=== PATIENT | male | born 1960 | race Caucasian/White ===

== ENCOUNTER 2017-02-04 12:00 | Emergency (ER) | payer SELFPAY ==
[~2017-02-04] VITALS: Ht 182.9 cm; Wt 114.3 kg
[~2017-02-04 12:00] MED LIST: TRAM50TA PO
[2017-02-04 12:05] VITALS: BP 184/82
[2017-02-04] MEDS ORDERED: TRAM-48 PO (12:33)
[2017-02-04] MEDS ORDERED: CIPR500T94 PO (12:33)
--- NOTE | 2017-02-04 12:33 | PHYS DOC ---
Past Medical History Past Medical History: Hypertension Past Surgical History: Other Additional Past Surgical Histo: RIGHT WRIST Alcohol Use: None Drug Use: None Adult General Chief Complaint Chief Complaint: DENTAL PROBLEM HPI HPI Patient is a 56 year old male with history of hypertension who presents today complaining of moderate right upper and lower jaw dental pain and swelling that began 4 days ago. Patient states he has multiple bad teeth that need to be extracted but does not have a dentist or dental insurance. Patient spent an incredible amount of time telling me is allergic to penicillin but takes cephalexin. He also states he was given clindamycin and has a whole bottle at home which he will not take because it upsets his stomach despite taking with food. He is currently requesting Cipro. Patient denies any fever or trismus. Review of Systems Review of Systems Constitutional: Denies fever or chills [] Eyes: Denies change in visual acuity, redness, or eye pain [] HENT: Denies nasal congestion or sore throat [] Right upper and lower dental pain and swelling Musculoskeletal: Denies back pain or joint pain [] Integument: Denies rash or skin lesions [] Neurologic: Denies headache, focal weakness or sensory changes [] All other systems were reviewed and found to be within normal limits, except as documented in this note. Allergies Allergies Allergies Coded Allergies Type Severity Reaction Last Updated Verified Penicillins Allergy Intermediate PASSES OUT 02/04/17 Yes Physical Exam Physical Exam Constitutional: Well developed, well nourished, no acute distress, non-toxic appearance. [] HENT: Normocephalic, atraumatic, bilateral external ears normal, oropharynx moist, no oral exudates, nose normal. [] Patient is severely decayed teeth and multiple missing teeth. Most of his teeth are decayed to the point of root exposure. There is swelling noted on the right lower exterior gum consistent with dental abscess. There is diffuse erythema noted on the right lower gums. Skin: Warm, dry, no erythema, no rash. [] Back: No tenderness, no CVA tenderness. [] Extremities: No tenderness, no cyanosis, no clubbing, ROM intact, no edema. [] Neurologic: Alert and oriented X 3, normal motor function, normal sensory function, no focal deficits noted. [] Psychologic: Affect normal, judgement normal, mood normal. [] Current Patient Data Vital Signs Vital Signs Date Time Temp Pulse Resp B/P (MAP) Pulse Ox O2 Delivery O2 Flow Rate FiO2 02/04/17 12:05 98.1 98 16 99 Room Air 98.1 EKG EKG [] Radiology/Procedures Radiology/Procedures [] Course & Med Decision Making Course & Med Decision Making Pertinent Labs and Imaging studies reviewed. (See chart for details) Patient is in the ED with dental abscess. He was discharged with Cipro. Discharged with Ultram 10 tablets for pain. Follow-up with dentist from a list provided in 1-2 weeks. Dragon Disclaimer Dragon Disclaimer This electronic medical record was generated, in whole or in part, using a voice recognition dictation system. Departure Departure Impression: Primary Impression: Dentalgia Additional Impressions: Infected dental caries Abscess, dental Disposition: HOME, SELF-CARE Condition: STABLE Referrals: NO PCP (PCP) follow up with a dentist from the list provided in 1 week Patient Instructions: Dental Abscess, Dental Caries Additional Instructions: You were seen with dental abscess. We provided you a dental list. Follow-up in the next 1-2 weeks. Complete your antibiotics. Scripts Tramadol Hcl (ULTRAM) 50 Mg Tablet 1 TAB PO Q6HRS, #10 TAB Prov: EDUARDA NGUYEN APRN 02/04/17 Ciprofloxacin Hcl (CIPRO) 500 Mg Tablet 1 TAB PO BID, #20 TAB Prov: EDUARDA NGUYEN APRN 02/04/17 Problem Qualifiers EDUARDA NGUYEN APRN Feb 04, 2017 12:33
== END 2017-02-04 12:42 | disposition home or self-care (01) ==
LOC: ER 12:00
DX: K04.7 Periapical abscess without sinus (principal); K02.9 Dental caries, unspecified; I10 Essential (primary) hypertension; Z88.0 Allergy status to penicillin
CPT/HCPCS: 99283

== ENCOUNTER 2020-11-29 10:52 | Emergency (ER) | payer SELFPAY ==
[~2020-11-29] VITALS: Ht 182.9 cm; Wt 116.0 kg
[~2020-11-29 10:52] MED LIST changes: +ACET325T9 PO; +ALBU2.5V8 NEB; +ASCO500T4 PO; +BENA1TAB44 PO; +CEPH250C PO; +CIPR500T94 PO; +DOCU-148 PO; +FAMO20TA5 PO; +FURO-68 PO; +GUAI100L12 PO; +HYDR-2145 PO; +LACT1CAP19 PO; +LOSA-73 PO; +TRAM-48 PO
--- NOTE | 2020-11-29 11:33 | RAD ---
EXAM: Head and maxillofacial bone CT without contrast. HISTORY: Fall. TECHNIQUE: Computed tomographic images of the head and maxillofacial bones were obtained without cont rast. *One or more of the following individualized dose reduction techniques were utilized for this examina tion: 1. Automated exposure control. 2. Adjustment of the mA and/or kV according to patient size. 3. Use of iterative reconstruction technique. COMPARISON: 10/19/2019. FINDINGS: There is no acute or subacute extra-axial or intraparenchymal hemorrhage. There is no mass effect or midline shift. There is no hydrocephalus. There is decreased attenuation scattered throughout the cerebral white matter, a nonspecific finding which can be seen with chronic small vessel disease. This is advanced for patient age. The mastoid ai r cells are clear. No calvarial fracture is seen. There is right periorbital and anterior maxillary soft tissue stranding due to soft tissue contusion. No acute fracture is seen. There is a right maxillary sinus mucosal thickening with small mucous ret ention cysts. There is no significant nasal septal deviation. The globes, extraocular muscles and opt ic nerves are unremarkable. The temporomandibular joints are intact. There are multiple dental restorations and missing and partially missing teeth. There are multiple de ntal caries. There are multiple periapical lucencies predominantly involving the right maxillary mola rs. There is degenerative change involving the cervical spine, primarily at C5-C6 and C6-C7. There is no suspicious osseous lesion or acute osseous finding. IMPRESSION: 1. Right periorbital and anterior maxillary soft tissue stranding due to a contusion. No underlying m axillofacial bone fracture is seen. 2. Right maxillary sinus disease. 3. Dental disease, including multiple dental caries and periapical lucencies. Correlate with dental e xam findings. 4. Scattered areas of hypodensity within the cerebral white matter, a nonspecific finding which is mo st commonly due to chronic small vessel disease. This is advanced for patient age. The possibility of changes due to chronic demyelination can be considered in the appropriate clinical setting. Electronically signed by: Kyra Buitrago MD (11/29/2020 11:31 AM) [id number]
[2020-11-29] MEDS ORDERED: FUROSEMIDE 40 MG TABLET. PO ONE (11:45)
[2020-11-29] MEDS ORDERED: cloNIDine HCL 0.1 MG TABLET PO ONE (11:45)
[2020-11-29] MEDS ORDERED: DOXY100T PO (11:51)
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
[2020-11-29] MEDS ORDERED: HYDR-2761 PO (11:58)
[2020-11-29] MEDS ORDERED: HALOPERIDOL LACTATE 5 MG/ML VIAL. IM ONE (12:00)
[2020-11-29 12:20] VITALS: BP 170/91
== END 2020-11-29 12:18 | disposition home or self-care (01) ==
LOC: ER 10:52
DX: S05.11XA Contusion of eyeball and orbital tissues, right eye, initial encounter (principal); I10 Essential (primary) hypertension; J01.00 Acute maxillary sinusitis, unspecified; I11.0 Hypertensive heart disease with heart failure; I50.9 Heart failure, unspecified; Z88.0 Allergy status to penicillin; V19.9XXA Pedal cyclist (driver) (passenger) injured in unspecified traffic accident, initial encounter; Y93.89 Activity, other specified; Y92.89 Other specified places as the place of occurrence of the external cause; Y99.8 Other external cause status
CPT/HCPCS: 70450; 70486; 99285-25

== ENCOUNTER 2021-01-28 12:51 | Inpatient (IN) | payer SELFPAY ==
[~2021-01-28] VITALS: Ht 182.9 cm; Wt 124.5 kg
[~2021-01-28 12:51] MED LIST changes: +DOXY100T PO; +HYDR-2761 PO
--- NOTE | 2021-01-28 14:58 | PHYS DOC ---
Past Medical History Past Medical History: CHF, Hypertension Additional Past Medical Histor: COVID-19 Past Surgical History: Other Additional Past Surgical Histo: RIGHT WRIST, R KNEE Smoking Status: Never Smoker Alcohol Use: None Drug Use: None General Adult EDM: Chief Complaint: SHORTNESS OF BREATH HPI: HPI: Patient is a 60-year-old male who presents to the emergency department for a 2- day history of shortness of breath. Patient has a history of congestive heart failure and hypertension. He states that he has been out of his Lasix for 1 month because he did not have a refill. He follows up with [facility]. He states that he takes 20 mg of Lasix and 25 mg of hydrochlorothiazide. Patient denies any cough, fever, nausea, vomiting, abdominal pain, dizziness, chest pain, increased edema in his abdomen or lower extremities. Patient states that his mother is sick with a viral illness currently. Review of Systems: Review of Systems: Constitutional: See HPI Respiratory: See HPI Cardiovascular: See HPI GI: See HPI Musculoskeletal: See HPI Integument: See HPI Neurologic: See HPI Heart Score: C/O Chest Pain: No Risk Factors: Risk Factors: DM, Current or recent (<one month) smoker, HTN, HLP, family history of CAD, obesity. Risk Scores: Score 0 - 3: 2.5% MACE over next 6 weeks - Discharge Home Score 4 - 6: 20.3% MACE over next 6 weeks - Admit for Clinical Observation Score 7 - 10: 72.7% MACE over next 6 weeks - Early Invasive Strategies Allergies: Allergies: Allergies Coded Allergies Type Severity Reaction Last Updated Verified Penicillins Allergy Intermediate PASSES OUT 02/04/17 Yes Physical Exam: PE: Constitutional: Well developed, well nourished, no acute distress, non-toxic appearance. [] HENT: Normocephalic, atraumatic, bilateral external ears normal, oropharynx moist, no oral exudates, nose normal. [] Eyes: PERRL, EOMI, conjunctiva normal, no discharge. [] Neck: Normal range of motion, no tenderness, supple, no stridor. [] Cardiovascular:Heart rate regular rhythm, no murmur [] Lungs & Thorax: Bilateral breath sounds clear to auscultation [] Abdomen: Bowel sounds normal, soft, no tenderness, obese, no masses, no pulsatile masses. [] Skin: Warm, dry, no erythema, no rash. [] Back: Normal range of motion Extremities: No tenderness, no cyanosis, no clubbing, ROM intact, 2+ pitting edema noted to bilateral lower extremities Neurologic: Alert and oriented X 3, normal motor function, normal sensory function, no focal deficits noted. [] Psychologic: Affect normal, judgement normal, mood normal. [] Current Patient Data: Labs: Laboratory Tests Test 01/28/21 14:46 01/28/21 14:55 White Blood Count 8.3 x10^3/uL Red Blood Count 6.01 x10^6/uL Hemoglobin 13.5 g/dL Hematocrit 43.2 % Mean Corpuscular Volume 72 fL Mean Corpuscular Hemoglobin 22 pg Mean Corpuscular Hemoglobin Concent 31 g/dL Red Cell Distribution Width 16.0 % Platelet Count 286 x10^3/uL Neutrophils (%) (Auto) 55 % Lymphocytes (%) (Auto) 32 % Monocytes (%) (Auto) 11 % Eosinophils (%) (Auto) 2 % Basophils (%) (Auto) 1 % Neutrophils # (Auto) 4.5 x10^3/uL Lymphocytes # (Auto) 2.6 x10^3/uL Monocytes # (Auto) 0.9 x10^3/uL Eosinophils # (Auto) 0.2 x10^3/uL Basophils # (Auto) 0.1 x10^3/uL Platelet Estimate Adequate Hypochromasia Mod Poikilocytosis Slight Anisocytosis Slight Microcytosis Slight Ovalocytes Few Sodium Level 141 mmol/L Potassium Level 4.7 mmol/L Chloride Level 106 mmol/L Carbon Dioxide Level 26 mmol/L Anion Gap 9 Blood Urea Nitrogen 22 mg/dL Creatinine 1.0 mg/dL Estimated GFR (Cockcroft-Gault) 76.5 BUN/Creatinine Ratio 22 Glucose Level 101 mg/dL Calcium Level 8.9 mg/dL Total Bilirubin 0.7 mg/dL Aspartate Amino Transf (AST/SGOT) 19 U/L Alanine Aminotransferase (ALT/SGPT) 14 U/L Alkaline Phosphatase 50 U/L Troponin I High Sensitivity 1623 ng/L NJ-Aty-E-Type Natriuretic Peptide 4427 pg/mL Total Protein 6.9 g/dL Albumin 3.0 g/dL Albumin/Globulin Ratio 0.8 Influenza Type A Antigen Negative Influenza Type B Antigen Negative SARS-CoV-2 Antigen (Rapid) Negative Current Medications Medications (Trade) Dose Ordered Sig/Мария Route PRN Reason Start Time Stop Time Status Last Admin Dose Admin Furosemide (Lasix) 20 mg 1X ONCE IVP 01/28/21 17:00 01/28/21 17:01 DC Heparin Sodium (Porcine) (Heparin Sodium) 4,000 unit 1X ONCE IV 01/28/21 17:00 01/28/21 17:01 DC Heparin Sodium/ Dextrose 250 ml @ 1,000 mls/hr CONT PRN IV PER PROTOCOL 01/28/21 17:00 Heparin Sodium (Porcine) (Heparin Sodium) 3,250 unit PRN Q6HRS PRN IV FOR UFH LEVEL LESS THAN 0.2 01/28/21 17:00 Vital Signs: Vital Signs Date Time Temp Pulse Resp B/P (MAP) Pulse Ox O2 Delivery O2 Flow Rate FiO2 01/28/21 14:19 101 22 140/97 (111) 99 Room Air 01/28/21 12:54 98.5 98.5 EKG: EKG: [] EKG performed by ER staff at 1441 shows sinus rhythm with a rate of 95, with PACs and a bundle branch block, QTC of 476, no STEMI read by Dr. Deng at 1441 Radiology/Procedures: Radiology/Procedures: []PROCEDURE: PORTABLE CHEST 1V EXAMINATION: XR CHEST 1V CLINICAL HISTORY: Shortness of breath EXAM DATE/TIME: 01/28/2021 3:11 PM COMPARISON: 11/16/2019 FINDINGS: Lines, Tubes, and Devices: None. Cardiomediastinal Silhouette: Cardiomegaly, similar to prior study. Aortic atherosclerotic calcification. Lungs and Pleura: Mild patchy bibasilar opacities. Questionable hazy opacities in the mid to lower lung zones versus extrathoracic soft tissue attenuation related to body habitus. No definite pleural effusion. Relatively stable appearance of the pulmonary vasculature. Bones and Soft Tissues: No acute osseous abnormality. IMPRESSION: Mild bibasilar patchy airspace disease, possibly subsegmental atelectasis. Cardiomegaly, similar to prior study. Electronically signed by: Steven Bar DO (01/28/2021 4:27 PM) [facility] DICTATED and SIGNED BY: STEVEN BAR DO DATE: 01/28/21 [id number] 0 Course & Med Decision Making: Course & Med Decision Making Pertinent Labs and Imaging studies reviewed. (See chart for details) [] Patient presents to the emergency department for 2-day history of shortness of breath with a history of congestive heart failure. Patient has been out of his Lasix and hydrochlorothiazide for 1 month. Patient reports that he did get a refill of the medication. Patient reports that his mother is also sick with a viral illness. Patient denies any increased edema to his abdomen or bilateral lower extremities. Patient's vital signs are stable. Work-up in the ER con sisted of blood work, EKG, chest x-ray. CBC is unremarkable. Patient's BNP was 4427, troponin I623. Patient's pH MRG was a 2.6% 7-day mortality. Chest x-ray shows cardiomegaly and atelectasis but no infiltrate. Due to his elevated troponin, patient will be admitted for serial troponins/EKGs and cardiac consultation. Patient will be treated with his home Lasix dose. I discussed these findings with Dr. Leonardo who is the sql data architect on-call today, he advised initiating the heparin protocol and n.p.o. after midnight. Heparin protocol ordered for patient. I discussed patient's case with Dr. Flowers who agreed to admit the patient under his services for CHF exacerbation and NSTEMI. ER bridge orders placed. 1704. Ariane Disclaimer: Ariane Disclaimer: This electronic medical record was generated, in whole or in part, using a voice recognition dictation system. Departure Departure Impression: Primary Impression: CHF exacerbation Qualified Codes: I50.9 - Heart failure, unspecified Additional Impression: NSTEMI (non-ST elevated myocardial infarction) Disposition: ADMITTED INPATIENT Admitting Physician: LUIS EDUARDO Condition: STABLE Referrals: JOSH CHEN APRN (PCP) ENEDINA KENNEDY APRN Jan 28, 2021 14:58
[2021-01-28 15:00] LABS: BASO # 0.1 x10^3/uL (0.0-0.2); BASO % 1 % (0-3); EOS # 0.2 x10^3/uL (0.0-0.7); EOS % 2 % (0-3); HEMATOCRIT 43.2 % (39.0-53.0); HEMOGLOBIN 13.5 g/dL (13.0-17.5); LYMPH # 2.6 x10^3/uL (1.0-4.8); LYMPH % 32 % (24-48); MEAN CORPUSCULAR HEMOGLOBIN 22 pg (25-35); MEAN CORPUSCULAR HGB CONC 31 g/dL (31-37); MEAN CORPUSCULAR VOLUME 72 fL (79-100); MONO # 0.9 x10^3/uL (0.0-1.1); MONO % 11 % (0-9); NEUT # 4.5 x10^3/uL (1.8-7.7); NEUT % 55 % (31-73); PLATELET COUNT 286 x10^3/uL (140-400); RED BLOOD COUNT 6.01 x10^6/uL (4.30-5.70); WHITE BLOOD COUNT 8.3 x10^3/uL (4.0-11.0)
[2021-01-28 15:56] LABS: CALCIUM 8.9 mg/dL (8.5-10.1); GFR 76.5; POTASSIUM 4.7 mmol/L (3.5-5.1)
[2021-01-28 16:06] LABS: ALBUMIN/GLOBULIN RATIO 0.8 (1.0-1.7); TOTAL BILIRUBIN 0.7 mg/dL (0.2-1.0); TOTAL PROTEIN 6.9 g/dL (6.4-8.2)
[2021-01-28 16:13] LABS: PLT ESTIMATE ADEQUATE (ADEQUATE)
[2021-01-28 16:14] LABS: ANISOCYTOSIS SLIGHT; HYPOCHROMIA MOD; MICROCYTOSIS SLIGHT; OVALOCYTES FEW; POIKILOCYTOSIS SLIGHT
[2021-01-28 16:22] LABS: INFLUENZA A PATIENT NEGATIVE (NEGATIVE); INFLUENZA B PATIENT NEGATIVE (NEGATIVE)
--- NOTE | 2021-01-28 16:29 | RAD ---
EXAMINATION: XR CHEST 1V CLINICAL HISTORY: Shortness of breath EXAM DATE/TIME: 01/28/2021 3:11 PM COMPARISON: 11/16/2019 FINDINGS: Lines, Tubes, and Devices: None. Cardiomediastinal Silhouette: Cardiomegaly, similar to prior study. Aortic atherosclerotic calcificat ion. Lungs and Pleura: Mild patchy bibasilar opacities. Questionable hazy opacities in the mid to lower nelli ng zones versus extrathoracic soft tissue attenuation related to body habitus. No definite pleural ef fusion. Relatively stable appearance of the pulmonary vasculature. Bones and Soft Tissues: No acute osseous abnormality. IMPRESSION: Mild bibasilar patchy airspace disease, possibly subsegmental atelectasis. Cardiomegaly, similar to prior study. Electronically signed by: Steven Garcia DO (01/28/2021 4:27 PM) GWEN
[2021-01-28] MEDS ORDERED: FUROSEMIDE 20 MG/2 ML VIAL. IVP ONE (17:00)
[2021-01-28] MEDS ORDERED: HEPARIN for IV BOLUS 10,000 UNIT/10 ML VIAL. IV ONE (17:00)
[2021-01-28] MEDS ORDERED: HEPARIN for IV BOLUS 10,000 UNIT/10 ML VIAL. IV PRN (17:00)
[2021-01-28] MEDS: HEPARIN 25,000UTS/250ML PREMIX 250 ML IV PRN (17:41)
[2021-01-28 18:55] VITALS: BP 162/80
--- NOTE | 2021-01-28 18:58 | EKG ---
[facility] [address] [place] [address] Test Date: 2021-01-28 Test Time: 14:41:08 Pat Name: LAKEISHA MEYERS Department: Room: [facility] Gender: M Supervisor [employer]: : 1960 Requested By: ENEDINA KENNEDY Order Number: [id number] Reading MD: Prince Leonardo Measurements Intervals [place] Rate: 95 P: 48 [place]: 162 QRS: -36 QRSD: 148 T: 42 QT: 376 QTc: 476 Interpretive Statements SINUS RHYTHM ATRIAL PREMATURE COMPLEX(ES) LEFT ATRIAL ABNORMALITY ABNORMAL LEFT AXIS DEVIATION LEFT ANTERIOR FASCICULAR BLOCK RIGHT BUNDLE BRANCH BLOCK BIFASCICULAR BLOCK Electronically Signed On 01-29-2021 12:34:53 CERTIFIED DRUG COUNSELOR by Prince Leonardo
[2021-01-28] MEDS ORDERED: HYDR-2145 PO (19:36)
--- NOTE | 2021-01-28 19:38 | NUR ---
Admit from ER prior to shift change. A/O x 4. Reports CP and SOA prompted him to come to ER. Denies CP or SOA at this time. Heparin drip infusing as ordered. Reports Lasix and HCTZ as only home medications and [facility] is his choice of pharmacy. Request box lunch. Orientated to room and call light. Reviewed POC to include Tele, Heparin drip and lab draws. Verbalized understanding. Resting in bed. Call light at hand.
--- NOTE | 2021-01-28 19:39 | HP ---
DATE OF SERVICE: 01/28/2021 ADMIT DATE: 01/28/2021 CHIEF COMPLAINT: Shortness of breath. HISTORY OF PRESENT ILLNESS: The patient is a pleasant 60-year-old male who quit taking his Lasix a month ago. He did not have a refill. Now, he is in heart failure. He has got acute on chronic systolic and diastolic heart failure. Chest x-ray showing vascular congestion. His BNP level is also elevated at 4427. Interestingly, his troponin is also elevated at 1623. I discussed the case with ER physician. We have consulted Cardiology. The patient is going to the cardiac floor on a heparin drip. PAST MEDICAL HISTORY: Noncompliance, CHF, hypertension, COVID-19, right wrist surgery, right knee surgery. ALLERGIES: PENICILLIN. FAMILY HISTORY: Coronary artery disease. SOCIAL HISTORY: He is an automotive hardware engineer. He does not drink, smoke or take drugs. MEDICATIONS: Reviewed, please refer to the MRAD. REVIEW OF SYSTEMS: GENERAL: No history of weight change, weakness or fevers. SKIN: No bruising, hair changes or rashes. EYES: No blurred, double or loss of vision. NOSE AND THROAT: No history of nosebleeds, hoarseness or sore throat. HEART: No history of palpitations, chest pain or shortness of breath on exertion. LUNGS: He complains of shortness of breath. GASTROINTESTINAL: Denies changes in appetite, nausea, vomiting, diarrhea or constipation. GENITOURINARY: No history of frequency, urgency, hesitancy or nocturia. NEUROLOGIC: Denies history of numbness, tingling, tremor or weakness. PSYCHIATRIC: No history of panic, anxiety or depression. ENDOCRINE: No history of heat or cold intolerance, polyuria or polydipsia. EXTREMITIES: Denies muscle weakness, joint pain, pain on walking or stiffness. PHYSICAL EXAMINATION: VITALS: Within normal limits and are stable. GENERAL: No apparent distress. Alert and oriented. HEENT: Normal cephalic atraumatic, external auditory canals are patent EYES: Extraocular muscles are intact, pupils are equally round and reactive to light and accommodation MUSCULOSKELETAL: Well developed, well nourished, good range of motion ENDOCRINE: No thyromegaly was palpated LYMPHATICS: No cervical chain or axillary nodes were noted HEMATOPOIETIC: No bruising NECK: Supple, no JVD, no thyromegaly was noted. LUNGS: He has bibasilar crackles. HEART: RRR, S1, S2 present. Peripheral pulses intact, no obvious murmurs were noted. ABDOMEN: Soft, nontender. Positive bowel sounds no organomegaly, normal bowel sounds. EXTREMITIES: Without any cyanosis, clubbing, or edema. Pedal pulses intact, Homans sign is negative. NEUROLOGIC: Normal speech, normal tone. A and O x 3, moves all extremities, no obvious focal deficits. PSYCHIATRIC: Normal affect, normal mood. Stable. SKIN: No ulcerations or rashes, good skin turgor, no jaundice. VASCULAR: Good capillary refill, neurovascular bundle appears to be intact. DIAGNOSTIC DATA: Chest x-ray by my eye is showing some vascular congestion. ASSESSMENT AND PLAN: Acute on chronic systolic and diastolic heart failure with elevated troponin, noncompliance. The patient has been admitted. We will consult Cardiology. Serial enzymes, serial EKGs, home meds. DVT prophylaxis. Full code. IV Lasix. Echocardiogram. IV heparin drip. Prognosis long-term guarded. DORIS DR: Dionna TID: [id number]
[2021-01-28 22:15] VITALS: BP 138/91
[2021-01-29] VITALS (7 sets, daily range): BP systolic 129–183; BP diastolic 75–106
--- NOTE | 2021-01-29 07:38 | PDOC2 ---
DEVONTE TAN COOK MESS 01/29/21 0738: CARDIAC CONSULT DATE OF CONSULT Date of Consult DATE: 01/29/21 TIME: 07:30 REASON FOR CONSULT Reason for Consult: Elevated troponin REFERRING PHYSICIAN Referring Physician: Matthieu SOURCE Source: Chart review, Patient HISTORY OF PRESENT ILLNESS HISTORY OF PRESENT ILLNESS This is a pleasant 60 yo male admitted for complains of SOA. Reports of some leg swelling and orthopnea and has been more SOA int he last 2 days. No chest pain, indigestion. He had lasix and 1 BP med but ran out and did not refill and follows up with Isai adams. No known hx of CAD, arrhythmias or VTE and no falls or injury. Denies methamphetamine use but came back + and reported last use was months ago. PAST MEDICAL HISTORY Cardiovascular: CHF, HTN, Other (RBBB) Pulmonary: Other (covid-19) Renal/: Chronic renal insuff PAST SURGICAL HISTORY Past Surgical History: Hernia Repair, Other (wrist and knee surgery) FAMILY HISTORY Family History: Hypertension, Stroke SOCIAL HISTORY ALCOHOL: none Drugs: None, Other (hx of meth use) CURRENT MEDICATIONS CURRENT MEDICATIONS Current Medications Medications (Trade) Dose Ordered Sig/Мария Route PRN Reason Start Time Stop Time Status Last Admin Dose Admin Furosemide (Lasix) 20 mg 1X ONCE IVP 01/28/21 17:00 01/28/21 17:01 DC 01/28/21 17:33 Heparin Sodium (Porcine) (Heparin Sodium) 4,000 unit 1X ONCE IV 01/28/21 17:00 01/28/21 17:01 DC 01/28/21 17:36 Heparin Sodium/ Dextrose 250 ml @ 1,000 mls/hr CONT PRN IV PER PROTOCOL 01/28/21 17:00 01/28/21 17:41 Heparin Sodium (Porcine) (Heparin Sodium) 3,250 unit PRN Q6HRS PRN IV FOR UFH LEVEL LESS THAN 0.2 01/28/21 17:00 01/28/21 23:56 ALLERGIES ALLERGIES: Coded Allergies: Penicillins (Verified Allergy, Intermediate, PASSES OUT, 01/28/21) ROS Review of System 14 point ROS evaluated with pertinent positives noted per HPI PHYSICAL EXAM General: Alert, Oriented X3, Cooperative, No acute distress HEENT: Atraumatic, Mucous membr. moist/pink Lungs: Clear to auscultation, Normal air movement Heart: Regular rate (SR), Normal S1, Normal S2, No murmurs Abdomen: Soft, No tenderness Extremities: No cyanosis, Other (2+ bilateral LE pitting edema) Skin: No breakdown, No significant lesion Neuro: Normal speech, Sensation intact Psych/Mental Status: Mental status NL, Mood NL MUSCULOSKELETAL: Osteoarthritic changes both hands VITALS/I&O VITALS/I&O: Vital Signs Date Time Temp Pulse Resp B/P (MAP) Pulse Ox O2 Delivery O2 Flow Rate FiO2 01/29/21 06:03 97.8 100 20 183/106 (131) 92 Room Air 97.8 I & O 01/28/21 01/28/21 01/29/21 15:00 23:00 07:00 Intake Total 500 ml 0 ml Output Total 450 ml Balance 500 ml -450 ml LABS Lab: Laboratory Tests Test 01/28/21 14:46 01/28/21 14:55 01/28/21 17:49 01/28/21 23:20 White Blood Count 8.3 x10^3/uL (4.0-11.0) Red Blood Count 6.01 x10^6/uL (4.30-5.70) H Hemoglobin 13.5 g/dL (13.0-17.5) Hematocrit 43.2 % (39.0-53.0) Mean Corpuscular Volume 72 fL (79-100) L Mean Corpuscular Hemoglobin 22 pg (25-35) L Mean Corpuscular Hemoglobin Concent 31 g/dL (31-37) Red Cell Distribution Width 16.0 % (11.5-14.5) H Platelet Count 286 x10^3/uL (140-400) Neutrophils (%) (Auto) 55 % (31-73) Lymphocytes (%) (Auto) 32 % (24-48) Monocytes (%) (Auto) 11 % (0-9) H Eosinophils (%) (Auto) 2 % (0-3) Basophils (%) (Auto) 1 % (0-3) Neutrophils # (Auto) 4.5 x10^3/uL (1.8-7.7) Lymphocytes # (Auto) 2.6 x10^3/uL (1.0-4.8) Monocytes # (Auto) 0.9 x10^3/uL (0.0-1.1) Eosinophils # (Auto) 0.2 x10^3/uL (0.0-0.7) Basophils # (Auto) 0.1 x10^3/uL (0.0-0.2) Platelet Estimate Adequate (ADEQUATE) Hypochromasia Mod Poikilocytosis Slight Anisocytosis Slight Microcytosis Slight Ovalocytes Few Sodium Level 141 mmol/L (136-145) Potassium Level 4.7 mmol/L (3.5-5.1) Chloride Level 106 mmol/L (98-107) Carbon Dioxide Level 26 mmol/L (21-32) Anion Gap 9 (6-14) Blood Urea Nitrogen 22 mg/dL (8-26) Creatinine 1.0 mg/dL (0.7-1.3) Estimated GFR (Cockcroft-Gault) 76.5 BUN/Creatinine Ratio 22 (6-20) H Glucose Level 101 mg/dL (70-99) H Calcium Level 8.9 mg/dL (8.5-10.1) Total Bilirubin 0.7 mg/dL (0.2-1.0) Aspartate Amino Transferase (AST) 19 U/L (15-37) Alanine Aminotransferase (ALT) 14 U/L (16-63) L Alkaline Phosphatase 50 U/L (46-116) Troponin I High Sensitivity 1623 ng/L (4-75) H 1452 ng/L (4-75) H 1504 ng/L (4-75) H MK-Wdb-L-Type Natriuretic Peptide 4427 pg/mL (0-124) H Total Protein 6.9 g/dL (6.4-8.2) Albumin 3.0 g/dL (3.4-5.0) L Albumin/Globulin Ratio 0.8 (1.0-1.7) L Influenza Type A Antigen Negative (NEGATIVE) Influenza Type B Antigen Negative (NEGATIVE) SARS-CoV-2 Antigen (Rapid) Negative (NEGATIVE) Heparin Anti-Xa Act, Unfractionated < 0.10 IU/mL (0.30-0.70) L Laboratory Tests 01/28/21 14:46 Laboratory Tests 01/28/21 14:46 ASSESSMENT/PLAN ASSESSMENT/PLAN 1. Acute on chronic diastolic CHF ran out of [employer] goes to [facility] [place]. compensated 2. HTN: labile episodes 3. NSTEMI 4. Chronic RBBB 5. CKD: unknown baseline 6. Hx of meth use 7. Hx of covid-19 8. Noncompliance: ran out of lasix and BP med 9. PSVT Recommendations 1. TTE, TSH, FLP, UDS 2. ASA 3. Start coreg and norvasc. Lasix PRN for now 4. Ischemic workup, LHC, risks and benefits discussed and agreeable to proceed FARZAD WADE MD 01/29/21 4718: CARDIAC CONSULT ASSESSMENT/PLAN ASSESSMENT/PLAN The patient was seen and interviewed as well as examined at the bedside. The chart was reviewed. The case was discussed. Agree with the plan of care. Type II NSTEMI. Await echo to ensure he doesn't have CMP from drug abuse. DEVONTE TAN APRN Jan 29, 2021 07:38 FARZAD WADE MD Jan 29, 2021 17:49
[2021-01-29 07:54] LABS: BASO # 0.1 x10^3/uL (0.0-0.2); BASO % 1 % (0-3); EOS # 0.2 x10^3/uL (0.0-0.7); EOS % 2 % (0-3); HEMATOCRIT 43.7 % (39.0-53.0); HEMOGLOBIN 13.5 g/dL (13.0-17.5); LYMPH # 3.1 x10^3/uL (1.0-4.8); LYMPH % 36 % (24-48); MEAN CORPUSCULAR HEMOGLOBIN 22 pg (25-35); MEAN CORPUSCULAR HGB CONC 31 g/dL (31-37); MEAN CORPUSCULAR VOLUME 72 fL (79-100); MONO % 11 % (0-9); NEUT # 4.4 x10^3/uL (1.8-7.7); NEUT % 51 % (31-73); PLATELET COUNT 269 x10^3/uL (140-400); RED BLOOD COUNT 6.06 x10^6/uL (4.30-5.70); RED CELL DISTRIBUTION WIDTH 15.6 % (11.5-14.5); WHITE BLOOD COUNT 8.7 x10^3/uL (4.0-11.0)
[2021-01-29 07:59] LABS: ALBUMIN 2.9 g/dL (3.4-5.0); ALBUMIN/GLOBULIN RATIO 0.8 (1.0-1.7); CALCIUM 8.5 mg/dL (8.5-10.1); GFR 76.5; POTASSIUM 4.4 mmol/L (3.5-5.1); TOTAL BILIRUBIN 0.7 mg/dL (0.2-1.0); TOTAL PROTEIN 6.7 g/dL (6.4-8.2)
[2021-01-29 09:40] LABS: CHOLESTEROL/HDL RATIO 2.8
--- NOTE | 2021-01-29 11:46 | NUR ---
SS following for discharge planning. SS reviewed pt chart and discussed with pt RN. Pt is from home and is currently on room air. COVID19 negative. Cardiology consulted. Heparin drip. Pt scheduled for heart cath. Self pay. Med Assist following. SS will continue to follow for discharge planning.
[2021-01-29] MEDS ORDERED: LIDOCAINE 1% PF 2 ML VIAL. ONE (11:56)
[2021-01-29] MEDS ORDERED: IOHEXOL 300 MG/ML 100ML VIAL. ONE (11:56)
[2021-01-29] MEDS ORDERED: HEPARIN for ARTERIAL LINE 1,500 ML ONE (11:56)
[2021-01-29] MEDS ORDERED: MIDAZOLAM HCL/PF 2 MG/2 ML VIAL. ONE (12:10)
[2021-01-29] MEDS ORDERED: fentaNYL PF VIAL 100 MCG/2 ML VIAL ONE (12:10)
[2021-01-29] MEDS ORDERED: HEPARIN for IV BOLUS 10,000 UNIT/10 ML VIAL. ONE (12:10)
[2021-01-29] MEDS ORDERED: NITROGLYCERIN 200 MCG/2 ML SYRINGE FOR CATH/VASC LAB. ONE (12:10)
[2021-01-29] MEDS ORDERED: VERAPAMIL 5 MG/2 ML VIAL. ONE (12:10)
[2021-01-29 12:11] LABS: AMPHETAMINE/METHAMPHETAMINE POS (NEG); BARBITURATES NEG (NEG); BENZODIAZEPINES NEG (NEG); CANNABINOIDS NEG (NEG); COCAINE NEG (NEG); METHADONE NEG (NEG); OPIATES NEG (NEG); PHENCYCLIDINE NEG (NEG)
--- NOTE | 2021-01-29 12:52 | PDOC ---
[employer] PROGRESS NOTE Date of Service DOS: DATE: 01/29/21 TIME: 12:51 Chief Complaint Chief Complaint Shortness of breath History of Present Illness History of Present Illness The patient is a pleasant 60-year-old male who quit taking his Lasix a month ago. He did not have a refill. Now, he is in heart failure. He has got acute on chronic systolic and diastolic heart failure. Chest x-ray showing vascular congestion. His BNP level is also elevated at 4427. Interestingly, his troponin is also elevated at 1623. I discussed the case with ER physician. We have consulted Cardiology. The patient is going to the cardiac floor on a heparin drip. 01/29/2021 Patient seen and examined Patient is awake, alert, in NAD 4L O2 per NC quality assurance monitor 1-2+ lower extremity edema on exam Chart reviewed Discussed with RN Vitals/I&O Vitals/I&O: Vital Signs Date Time Temp Pulse Resp B/P (MAP) Pulse Ox O2 Delivery O2 Flow Rate FiO2 01/29/21 10:29 98.0 98 18 153/102 (119) 97 Nasal Cannula 2.0 98.0 I & O 01/28/21 01/28/21 01/29/21 15:00 23:00 07:00 Intake Total 500 ml 0 ml Output Total 450 ml Balance 500 ml -450 ml Physical Exam Heart: Regular rate Lungs: Clear Abdomen: Normal bowel sounds Extremities: Other (1-2+ LE edema) Skin: No rashes Labs Labs: Laboratory Tests Test 01/28/21 14:46 01/28/21 14:55 01/28/21 15:08 01/28/21 17:49 White Blood Count 8.3 x10^3/uL (4.0-11.0) Red Blood Count 6.01 x10^6/uL (4.30-5.70) Hemoglobin 13.5 g/dL (13.0-17.5) Hematocrit 43.2 % (39.0-53.0) Mean Corpuscular Volume 72 fL (79-100) Mean Corpuscular Hemoglobin 22 pg (25-35) Mean Corpuscular Hemoglobin Concent 31 g/dL (31-37) Red Cell Distribution Width 16.0 % (11.5-14.5) Platelet Count 286 x10^3/uL (140-400) Neutrophils (%) (Auto) 55 % (31-73) Lymphocytes (%) (Auto) 32 % (24-48) Monocytes (%) (Auto) 11 % (0-9) Eosinophils (%) (Auto) 2 % (0-3) Basophils (%) (Auto) 1 % (0-3) Neutrophils # (Auto) 4.5 x10^3/uL (1.8-7.7) Lymphocytes # (Auto) 2.6 x10^3/uL (1.0-4.8) Monocytes # (Auto) 0.9 x10^3/uL (0.0-1.1) Eosinophils # (Auto) 0.2 x10^3/uL (0.0-0.7) Basophils # (Auto) 0.1 x10^3/uL (0.0-0.2) Platelet Estimate Adequate (ADEQUATE) Hypochromasia Mod Poikilocytosis Slight Anisocytosis Slight Microcytosis Slight Ovalocytes Few Sodium Level 141 mmol/L (136-145) Potassium Level 4.7 mmol/L (3.5-5.1) Chloride Level 106 mmol/L (98-107) Carbon Dioxide Level 26 mmol/L (21-32) Anion Gap 9 (6-14) Blood Urea Nitrogen 22 mg/dL (8-26) Creatinine 1.0 mg/dL (0.7-1.3) Estimated GFR (Cockcroft-Gault) 76.5 BUN/Creatinine Ratio 22 (6-20) Glucose Level 101 mg/dL (70-99) Calcium Level 8.9 mg/dL (8.5-10.1) Total Bilirubin 0.7 mg/dL (0.2-1.0) Aspartate Amino Transf (AST/SGOT) 19 U/L (15-37) Alanine Aminotransferase (ALT/SGPT) 14 U/L (16-63) Alkaline Phosphatase 50 U/L (46-116) Troponin I High Sensitivity 1623 ng/L (4-75) 1452 ng/L (4-75) YG-Ygm-D-Type Natriuretic Peptide 4427 pg/mL (0-124) Total Protein 6.9 g/dL (6.4-8.2) Albumin 3.0 g/dL (3.4-5.0) Albumin/Globulin Ratio 0.8 (1.0-1.7) Influenza Type A Antigen Negative (NEGATIVE) Influenza Type B Antigen Negative (NEGATIVE) SARS-CoV-2 Antigen (Rapid) Negative (NEGATIVE) SARS-CoV-2 RNA (MITZI) Negative (Negative) Test 01/28/21 23:20 01/29/21 07:05 01/29/21 11:35 Heparin Anti-Xa Act, Unfractionated < 0.10 IU/mL (0.30-0.70) 0.11 IU/mL (0.30-0.70) Troponin I High Sensitivity 1504 ng/L (4-75) White Blood Count 8.7 x10^3/uL (4.0-11.0) Red Blood Count 6.06 x10^6/uL (4.30-5.70) Hemoglobin 13.5 g/dL (13.0-17.5) Hematocrit 43.7 % (39.0-53.0) Mean Corpuscular Volume 72 fL (79-100) Mean Corpuscular Hemoglobin 22 pg (25-35) Mean Corpuscular Hemoglobin Concent 31 g/dL (31-37) Red Cell Distribution Width 15.6 % (11.5-14.5) Platelet Count 269 x10^3/uL (140-400) Neutrophils (%) (Auto) 51 % (31-73) Lymphocytes (%) (Auto) 36 % (24-48) Monocytes (%) (Auto) 11 % (0-9) Eosinophils (%) (Auto) 2 % (0-3) Basophils (%) (Auto) 1 % (0-3) Neutrophils # (Auto) 4.4 x10^3/uL (1.8-7.7) Lymphocytes # (Auto) 3.1 x10^3/uL (1.0-4.8) Monocytes # (Auto) 1.0 x10^3/uL (0.0-1.1) Eosinophils # (Auto) 0.2 x10^3/uL (0.0-0.7) Basophils # (Auto) 0.1 x10^3/uL (0.0-0.2) Sodium Level 140 mmol/L (136-145) Potassium Level 4.4 mmol/L (3.5-5.1) Chloride Level 104 mmol/L (98-107) Carbon Dioxide Level 25 mmol/L (21-32) Anion Gap 11 (6-14) Blood Urea Nitrogen 20 mg/dL (8-26) Creatinine 1.0 mg/dL (0.7-1.3) Estimated GFR (Cockcroft-Gault) 76.5 BUN/Creatinine Ratio 20 (6-20) Glucose Level 102 mg/dL (70-99) Calcium Level 8.5 mg/dL (8.5-10.1) Total Bilirubin 0.7 mg/dL (0.2-1.0) Aspartate Amino Transf (AST/SGOT) 19 U/L (15-37) Alanine Aminotransferase (ALT/SGPT) 13 U/L (16-63) Alkaline Phosphatase 46 U/L (46-116) Total Protein 6.7 g/dL (6.4-8.2) Albumin 2.9 g/dL (3.4-5.0) Albumin/Globulin Ratio 0.8 (1.0-1.7) Triglycerides Level 69 mg/dL (0-150) Cholesterol Level 149 mg/dL (0-200) LDL Cholesterol, Calculated 82 mg/dL (0-100) VLDL Cholesterol, Calculated 14 mg/dL (0-40) Non-HDL Cholesterol Calculated 96 mg/dL (0-129) HDL Cholesterol 53 mg/dL (40-60) Cholesterol/HDL Ratio 2.8 Thyroid Stimulating Hormone (TSH) 3.329 uIU/mL (0.358-3.74) Urine Opiates Screen Neg (NEG) Urine Methadone Screen Neg (NEG) Urine Barbiturates Neg (NEG) Urine Phencyclidine Screen Neg (NEG) Urine Amphetamine/Methamphetamine Pos (NEG) Urine Benzodiazepines Screen Neg (NEG) Urine Cocaine Screen Neg (NEG) Urine Cannabinoids Screen Neg (NEG) Urine Ethyl Alcohol Neg (NEG) Assessment and Plan Assessmemt and Plan Acute on chronic systolic and diastolic heart failure with elevated troponin noncompliance. Plan: Appreciate cardiology input Serial enzymes serial EKGs cardiac monitoring Echocardiogram home meds DVT prophylaxis. Full code IV Lasix IV heparin drip 4L O2 per NC Prognosis long-term guarded. Comment Review of Relevant I have reviewed the following items aminta (where applicable) has been applied. Medications: Current Medications Medications (Trade) Dose Ordered Sig/Мария Route PRN Reason Start Time Stop Time Status Last Admin Dose Admin Furosemide (Lasix) 20 mg 1X ONCE IVP 01/28/21 17:00 12/8/21 17:01 DC 01/28/21 17:33 Heparin Sodium (Porcine) (Heparin Sodium) 4,000 unit 1X ONCE IV 01/28/21 17:00 01/28/21 17:01 DC 01/28/21 17:36 Heparin Sodium/ Dextrose 250 ml @ 1,000 mls/hr CONT PRN IV PER PROTOCOL 01/28/21 17:00 01/28/21 17:41 Heparin Sodium (Porcine) (Heparin Sodium) 3,250 unit PRN Q6HRS PRN IV FOR UFH LEVEL LESS THAN 0.2 01/28/21 17:00 01/28/21 23:56 Justifications for Admission Other Justification NORIS ANGLIN III DO Jan 29, 2021 12:52
[2021-01-29] MEDS ORDERED: LIDOCAINE 1% PF 2 ML VIAL. INJ ONE (13:00)
[2021-01-29] MEDS ORDERED: MIDAZOLAM HCL/PF 2 MG/2 ML VIAL. IV ONE (13:00)
[2021-01-29] MEDS ORDERED: HEPARIN for IV BOLUS 10,000 UNIT/10 ML VIAL. IART ONE (13:00)
[2021-01-29] MEDS ORDERED: IODIXANOL 320 MG/ML 100 ML VIAL. IART ONE (13:00)
[2021-01-29] MEDS ORDERED: fentaNYL PF VIAL 100 MCG/2 ML VIAL IV ONE (13:00)
[2021-01-29] MEDS ORDERED: NITROGLYCERIN 200 MCG/2 ML SYRINGE FOR CATH/VASC LAB. IART ONE (13:00)
[2021-01-29] MEDS ORDERED: VERAPAMIL 5 MG/2 ML VIAL. IART ONE (13:00)
[2021-01-29] MEDS: ASPIRIN ENTERIC COATED 81 MG TABLET.DR. PO SCH (13:17)
--- NOTE | 2021-01-29 15:21 | CARD ---
MR#: [id number] Date of Study: 01/29/2021 Ordering Physician: DEVONTE TAN, Referring Physician: DEVONTE TAN, Tech: RT Jose(R)() APPROVED REPORT Technologist: Nakita Sanabria RT(R)() Nurse: Em Rodriguez RN Procedure(s) performed: MODERATE SEDATION TIME: 20 MINUTES FLUORO TIME: 2.8 MIN DOSE: 75 GYCM2 CONTRAST: 73CC OMNI LHC, Coronary angiography INDICATION The indication(s) include : non-STEMI . CS Clinical Frailty Scale [facility] Clinical Frailty Scale: Managing Well Heart Failure Heart Failure: No CASE TECHNIQUE IV conscious sedation was used throughout procedure with appropriate monitoring and was performed in the presence of a registered nurse who was an independent trained observer other than the physician p erforming the procedure. During this case, Fluoroscopy and low osmolar contrast were used for imaging . Specimen(s) Removed: N/A Estimated Blood loss: 15 cc's. PROCEDURE NARRATIVE Clinical information: 60 y.o man with NSTEMI Informed consent: Written informed consent was obtained from the patient after adequate discussion of the risks and kasey efits of the procedure. Procedure details: ACCESS: The right wrist was prepped and draped in usual sterile fashion. Under 1% lidocaine local anesthesia a 6 Norwegian Terumo sheath was placed in the right radial artery via the Seldinger technique. DIAGNOSTIC ANGIOGRAPHY: Right and left coronary arteries were engaged with a 6 Norwegian TIG catheter and JL4 catheter. Diagnos tic angiography in multiple views were obtained. Next, a 6 FrenchTIG catheter was placed in the left ventricle and a LVEDP was measured. All catheters were exchanged over J-tip guidewire. FINDINGS: ======= Aorta: 110/80 LVEDP: 15 mmHg Left ventriculogram: Deferred Coronary angiography: LM: Large caliber vessel with normal angiographic appearance LAD: Large caliber vessel with normal angiographic appearance. D1: Moderate caliber vessel with normal angiographic appearance LCX: Moderate caliber non-dominant vessel with mild luminal irregularities OM1: Moderate caliber vessel with normal angiographic appearance RCA: Large caliber dominant vessel with normal angiographic appearance. CLOSURE: At case completion the right radial sheath was removed and a Terumo radial band was applied with 11 m L of air. Hemostasis was achieved. COMPLICATIONS: No acute complications noted Conclusion 1. Normal left sided filling pressures. 2. No significant coronary disease. Recommendations 1. Type 2 NSTEMI - recommend lifestyle modification. 2. Obtain echo prior to discharge for evaluation of LV function. Signed by : Carlos Whitman, Electronically Approved : 01/29/2021 15:21:29
[2021-01-29] MEDS: CARVEDILOL 6.25 MG TABLET. PO SCH (17:00)
[2021-01-29] MEDS: HEPARIN 25,000UTS/250ML PREMIX 250 ML IV PRN ×2 (18:04→18:05)
[2021-01-30 02:38] VITALS: BP 113/73
[2021-01-30 07:00] VITALS: BP 139/80
[2021-01-30] MEDS: ASPIRIN ENTERIC COATED 81 MG TABLET.DR. PO SCH (08:14)
[2021-01-30] MEDS: CARVEDILOL 6.25 MG TABLET. PO SCH (08:15)
--- NOTE | 2021-01-30 09:19 | CARD ---
MR#: [id number] Date of Study: 01/30/2021 Ordering Physician: DEVONTE TAN, Referring Physician: DEVONTE TAN, Tech: Donya Bhatt, [facility] APPROVED REPORT EXAM: Two-dimensional and M-mode echocardiogram with Doppler and color Doppler. Other Information Quality : AverageHR: 82bpm INDICATION Dyspnea Congestive Heart Failure Non STEMI RISK FACTORS Hypertension 2D DIMENSIONS Left Atrium(2D)3.7 (1.6-4.0cm)IVSd1.2 (0.7-1.1cm) Aortic Root(2D)3.8 (2.0-3.7cm)LVDd6.1 (3.9-5.9cm) LVOT Diameter2.3 (1.8-2.4cm)PWd1.2 (0.7-1.1cm) LVDs4.9 (2.5-4.0cm)FS (%) 20.2 % SV75.5 mlLVEF(%)40.7 (>50%) Aortic Valve AoV Peak Mehrdad.171.6cm/sAoV VTI29.4cm AO Peak GR.11.8mmHgLVOT VTI 16.34cm AO Mean GR.6mmHgAI P 1/2 Flng583pd Mitral Valve MV E Xvhloifp47.9cm/sMV E Peak Gr.4mmHg MV DECEL [id number] A Tqerinbx55.0cm/s MV E Mean Gr.2mmHgE/A Ratio1.4 TDI Lateral E' P. V7.92cm/sMedial E' P. V5.60cm/s E/Lateral E'10.7E/Medial E'15.2 Tricuspid Valve TR P. Gxyxclst176de/sRAP [id number] TR Peak Gr.81mkQxCMZH49yuRh LEFT VENTRICLE The Left Ventricle is mildly dilated. There is mild concentric left ventricular hypertrophy. The syst olic function is mildly impaired. The Ejection Fraction is 40-45%. Septal motion consistent with cond uction abnormality. There is mild global hypokinesis. Transmitral Doppler flow pattern is Grade II-ps eudonormal filling dynamics. RIGHT VENTRICLE The right ventricle is mildly dilated. The right ventricle is mildly hypertrophied. RV Systolic funct ion is mildly reduced. ATRIA The left atrium is mildly dilated. The right atrium is borderline dilated. The interatrial septum is intact with no evidence for an atrial septal defect or patent foramen ovale as noted on 2-D or Dopple r imaging. AORTIC VALVE The aortic valve is normal in structure and function. Doppler and Color Flow revealed trace aortic re gurgitation. There is no significant aortic valvular stenosis. Calculated aortic valve area is 1.57 c m2 with maximum pressure gradient of 15 mmHg and mean pressure gradient of 8 mmHg. MITRAL VALVE The mitral valve is normal in structure and function. There is no evidence of mitral valve prolapse. There is no mitral valve stenosis. Doppler and Color-flow revealed trace mitral regurgitation. TRICUSPID VALVE The tricuspid valve is normal in structure and function. Doppler and Color Flow revealed trace tricus pid regurgitation with an estimated PAP of 60 mmHg. There is no tricuspid valve stenosis. PULMONIC VALVE The pulmonic valve is not well visualized. Doppler and Color Flow revealed trace pulmonic valvular re gurgitation. There is no pulmonic valvular stenosis. GREAT VESSELS The aortic root is normal in size. The IVC is normal in size and collapses >50% with inspiration. PERICARDIAL EFFUSION There is no evidence of significant pericardial effusion. Critical Notification Critical Value: No <Conclusion> The systolic function is mildly impaired. The Ejection Fraction is 40-45%. Septal motion consistent with conduction abnormality. There is mild global hypokinesis. Transmitral Doppler flow pattern is Grade II-pseudonormal filling dynamics. The right ventricle is mildly dilated. RV Systolic function is mildly reduced. Doppler and Color Flow revealed trace tricuspid regurgitation with an estimated PAP of 60 mmHg. Signed by : Carlos Whitman, Electronically Approved : 01/30/2021 09:18:22
[2021-01-30] MEDS ORDERED: AMLO-187 PO (10:05)
[2021-01-30] MEDS ORDERED: CARV6.2511 PO (10:05)
[2021-01-30] MEDS ORDERED: ASPI-886 PO (10:05)
--- NOTE | 2021-01-30 10:30 | PDOC ---
[facility] [facility] PROGRESS NOTE Date of Service DOS: DATE: 01/30/21 TIME: 10:26 Chief Complaint Chief Complaint Shortness of breath History of Present Illness History of Present Illness The patient is a pleasant 60-year-old male who quit taking his Lasix a month ago. He did not have a refill. Now, he is in heart failure. He has got acute on chronic systolic and diastolic heart failure. Chest x-ray showing vascular congestion. His BNP level is also elevated at 4427. Interestingly, his troponin is also elevated at 1623. I discussed the case with ER physician. We have consulted Cardiology. The patient is going to the cardiac floor on a heparin drip. 01/30/2021 Patient seen and examined Patient is awake, alert, in NAD; 1 day post-op cardiac cath Patient complains of some SOB after walking to the bathroom Patient was not wearing his NC upon entry as it was on the floor, I retrieved this for him 2L O2 per NC monitoring engineer Chart reviewed Discussed with RN 01/29/2021 Patient seen and examined Patient is awake, alert, in NAD 4L O2 per NC monitoring engineer 1-2+ lower extremity edema on exam Chart reviewed Discussed with RN Vitals/I&O Vitals/I&O: Vital Signs Date Time Temp Pulse Resp B/P (MAP) Pulse Ox O2 Delivery O2 Flow Rate FiO2 01/30/21 08:16 83 139/80 01/30/21 08:00 Room Air 2.0 01/30/21 07:00 98.8 16 93 98.8 I & O 01/29/21 01/29/21 01/30/21 15:00 23:00 07:00 Intake Total 0 ml 700 ml 200 ml Output Total 600 ml Balance 0 ml 100 ml 200 ml Physical Exam General: Alert, Oriented X3, Cooperative, No acute distress Heart: Regular rate (SR), Normal S1, Normal S2, No murmurs Lungs: Clear Abdomen: Soft, No tenderness Extremities: No cyanosis, Other (2+ bilateral LE pitting edema) Skin: No breakdown, No significant lesion Labs Labs: Laboratory Tests Test 01/29/21 11:35 01/29/21 15:15 Urine Opiates Screen Neg (NEG) Urine Methadone Screen Neg (NEG) Urine Barbiturates Neg (NEG) Urine Phencyclidine Screen Neg (NEG) Urine Amphetamine/Methamphetamine Pos (NEG) Urine Benzodiazepines Screen Neg (NEG) Urine Cocaine Screen Neg (NEG) Urine Cannabinoids Screen Neg (NEG) Urine Ethyl Alcohol Neg (NEG) Heparin Anti-Xa Act, Unfractionated < 0.10 IU/mL (0.30-0.70) Assessment and Plan Assessmemt and Plan Acute on chronic systolic and diastolic heart failure with elevated troponin noncompliance. Plan: Appreciate cardiology input Cardiac catheterization yesterday 01/29 Serial enzymes serial EKGs cardiac monitoring Echocardiogram home meds DVT prophylaxis. Full code IV Lasix IV heparin drip 2L O2 per NC Prognosis long-term guarded. Comment Review of Relevant I have reviewed the following items aminta (where applicable) has been applied. Medications: Current Medications Medications (Trade) Dose Ordered Sig/Мария Route PRN Reason Start Time Stop Time Status Last Admin Dose Admin Nitroglycerin (Nitroglycerin) 200 mcg 1X ONCE IART 01/29/21 13:00 01/29/21 13:01 DC 01/29/21 13:06 Verapamil HCl (Verapamil) 2.5 mg 1X ONCE IART 01/29/21 13:00 01/29/21 13:01 DC 01/29/21 13:07 Heparin Sodium (Porcine) (Heparin Sodium) 2,500 unit 1X ONCE IART 01/29/21 13:00 01/29/21 13:01 DC 01/29/21 13:08 Heparin Sodium/ Sodium Chloride (HEPARIN for ARTERIAL LINE FLUSH) 1,000 unit 1X ONCE IART 01/29/21 13:00 01/29/21 13:01 DC 01/29/21 13:06 Heparin Sodium/ Sodium Chloride (HEPARIN for ARTERIAL LINE FLUSH) 1,000 unit 1X ONCE IART 01/29/21 13:00 01/29/21 13:01 DC 01/29/21 13:06 Midazolam HCl (Versed) 2 mg 1X ONCE IV 01/29/21 13:00 01/29/21 13:01 DC 01/29/21 13:07 Fentanyl Citrate (Fentanyl 2ml Vial) 50 mcg 1X ONCE IV 01/29/21 13:00 01/29/21 13:01 DC 01/29/21 13:07 Iodixanol (Visipaque 320) 73 ml 1X ONCE IART 01/29/21 13:00 01/29/21 13:01 DC 01/29/21 13:06 Lidocaine HCl (Xylocaine-Mpf 1% 2ml Vial) 2 ml 1X ONCE INJ 01/29/21 13:00 01/29/21 13:01 DC 01/29/21 13:08 Carvedilol (Coreg) 6.25 mg BIDWMEALS PO 01/29/21 17:00 01/30/21 08:15 Amlodipine Besylate (Norvasc) 10 mg DAILY PO 01/30/21 09:00 01/30/21 08:16 Amlodipine Besylate (Norvasc) 10 mg 1X ONCE PO 01/29/21 14:00 01/29/21 14:01 DC 01/29/21 14:08 Justifications for Admission Other Justification NORIS ANGLIN III DO Jan 30, 2021 10:30
[2021-01-30 10:37] VITALS: BP 97/62
--- NOTE | 2021-01-30 11:24 | NUR ---
SS following up with discharge planning. SS reviewed pt chart and discussed with pt RN. Pt is currently on room air. COVID19 negative. Pt has heart cath on 01/29/2021. Cardiology following. Discharge order on the chart for home with self care.
--- NOTE | 2021-01-30 12:51 | PDOC ---
CARDIO Progress Notes Date and Time Date of Service 01/30/2021 Time of Evaluation 1220 Subjective Subjective: No Chest Pain, No shortness of breath, No Palpitations Vitals Vitals Vital Signs Date Time Temp Pulse Resp B/P (MAP) Pulse Ox O2 Delivery O2 Flow Rate FiO2 01/30/21 10:37 98.5 82 18 97/62 (74) 90 Nasal Cannula 2.0 98.5 Weight Weight [ ] Input and Output Intake and Output Intake and Output 01/30/21 07:00 Intake Total 900 ml Output Total 600 ml Balance 300 ml Intake Oral 900 ml Output Urine Total 600 ml Laboratory Labs Laboratory Tests Test 01/29/21 15:15 Heparin Anti-Xa Act, Unfractionated < 0.10 IU/mL (0.30-0.70) Physical Exam HEENT: Neck Supple W Full Motion Chest: Symmetric LUNGS: Clear to Auscultation Heart: S1S2, RRR (SR) Abdomen: Soft N/T Extremities: No Edema, No Calf Tenderness Neurology: alert, oriented, follow commands Assessment Assessment 1. Acute on chronic diastolic CHF ran out of lasix goes to bessy compensated 2. HTN: better 3. NSTEMI: LHC revealed no significant CAD. due to meth abuse/and uncontrolled HTN 4. Chronic RBBB 5. CKD: unknown baseline 6. Hx of meth use 7. Hx of covid-19 8. Noncompliance: ran out of lasix and BP med 9. PSVT: none further overnight 10. NICM: EF at 40-45% likely from meth 11. Secondary pulmonary HTN Recommendations 1. Coreg, lisinopril and lasix 2. HF education 3. Abstinence from methamphetamines 4. Encouraged to follow up in office. Justicifation of Admission Dx: Justifications for Admission: Justification of Admission Dx: Yes CHF: Hemodynamic Instability Acute Renal Failure: 3-Fold Rise in Serum Crea KS: Acute NSTEMI DEVONTE [employer] AIDE Jan 30, 2021 12:51
[2021-01-30] MEDS ORDERED: FUROSEMIDE 20 MG TABLET PO SCH (13:00)
--- NOTE | 2021-01-30 19:33 | DS ---
DATE OF DISCHARGE: 01/30/2021 ADMITTING DIAGNOSES: Acute on chronic systolic and diastolic heart failure, elevated troponin, noncompliance, drug abuse. DISCHARGE DIAGNOSES: Resolving heart failure, noncompliance, drug abuse, status post left heart catheterization, which showed no significant disease, hypertension, methamphetamine abuse, chronic right bundle branch block, chronic kidney disease, history of COVID-19, noncompliance, PSVT, nonischemic cardiomyopathy with a 40-45% ejection fraction, secondary pulmonary hypertension. CONSULTS: Cardiology. PROCEDURES: Cardiac catheterization. HOSPITAL COURSE: The patient is a pleasant middle-aged male who is now presented with shortness of breath, was noted to have elevated troponin. He also does methamphetamine. He seems to be in heart failure. We admitted the patient. We diuresed him, did cardiac monitoring, serial enzymes, serial EKGs. Cardiology took him for a cardiac catheterization, which showed no coronary artery disease, but he does have heart failure with a 40-45% ejection fraction. Overall, this morning I saw him, he is at his baseline. We discharged to home. DISPOSITION: Home. ACTIVITY: As tolerated. DIET: Low sodium. DISCHARGE MEDICATIONS: Please see the MRAD. Amlodipine 10 a day, aspirin 81 a day, carvedilol 6.25 b.i.d., Lasix 40 a day and hydrochlorothiazide 25 a day. Total time 32 minutes. TONY/ATILIO DR: TONY/paul TID: [id number]
[2021-01-31] MEDS ORDERED: LISINOPRIL 10 MG TABLET PO SCH (09:00)
== END 2021-01-30 13:30 | disposition home or self-care (01) | DRG 280 ==
LOC: ER 12:51 → 6 SOUTH 16:58
PROVIDERS: ADMIT Internal Medicine; ATTEND Internal Medicine
PROC: 4A023N7 Measurement of Cardiac Sampling and Pressure, Left Heart, Percutaneous Approach (ICD-10-PCS; principal; 2021-01-29)
PROC: B2111ZZ Fluoroscopy of Multiple Coronary Arteries using Low Osmolar Contrast (ICD-10-PCS; 2021-01-29)
DX: I13.0 Hypertensive heart and chronic kidney disease with heart failure and stage 1 through stage 4 chronic kidney disease, or unspecified chronic kidney disease (principal); I21.A1 Myocardial infarction type 2; I50.43 Acute on chronic combined systolic (congestive) and diastolic (congestive) heart failure; I47.1 Supraventricular tachycardia; F15.10 Other stimulant abuse, uncomplicated; I27.20 Pulmonary hypertension, unspecified; I42.8 Other cardiomyopathies; I45.10 Unspecified right bundle-branch block; N18.9 Chronic kidney disease, unspecified; Z82.3 Family history of stroke; Z82.49 Family history of ischemic heart disease and other diseases of the circulatory system; Z86.16 Personal history of COVID-19; Z91.19 Patient's noncompliance with other medical treatment and regimen; Z20.822 Contact with and (suspected) exposure to COVID-19
CPT/HCPCS: 36415; 71045; 80053; 80061; 80307; 83880; 84443; 84484; 85025; 85520; 87426; 87804; 93005; 93306; 93458; 96365; 96375; 96376; 99152; 99153; C1894; J1644; J1940; J2250; J3010; J3490; Q9967; U0003; U0005; 99285-25; G0378